=== PATIENT | female | born 1985 | race Caucasian/White ===

== ENCOUNTER 2023-06-12 13:07 | Emergency (ER) | payer OTHER ==
[2023-06-12] MEDS: ALBUTEROL SO4 2.5/IPRATROPIUM 0.5 INH SOL 3 ML VIAL.NEB. NEB SCH ×4 (13:30→14:20)
[2023-06-12] MEDS ORDERED: predniSONE 20 MG TABLET (UD) PO ONE (13:32)
[2023-06-12] MEDS ORDERED: predniSONE 20 MG TABLET (UD) ONE (13:40)
[2023-06-12] MEDS ORDERED: ALBUTEROL SO4 2.5/IPRATROPIUM 0.5 INH SOL 3 ML VIAL.NEB. NEB ONE (13:40)
[2023-06-12 13:48] VITALS: BP 158/87; PULSE 96; RESP 18; TEMP 98.3; BMI 24.5
== END 2023-06-12 16:27 | disposition home or self-care (01) ==
LOC: FER 13:07
PROC: 3E0F7GC Introduction of Other Therapeutic Substance into Respiratory Tract, Via Natural or Artificial Opening (ICD-10-PCS; principal; 2023-06-12)
DX: J45.901 Unspecified asthma with (acute) exacerbation (principal)
CPT/HCPCS: 99283-25